=== PATIENT | female | born 1975 | race Caucasian/White ===

== ENCOUNTER 2021-09-20 14:12 | Emergency (ER) | payer MEDICAID ==
[~2021-09-20] VITALS: Ht 170.2 cm; Wt 104.3 kg
[2021-09-20] MEDS ORDERED: CYCLOBENZAPRINE HCL 10 MG TABLET PO ONE (15:00)
[2021-09-20] MEDS ORDERED: MECLIZINE HCL 25 MG TABLET PO ONE (15:00)
[2021-09-20] MEDS ORDERED: ACETAMINOPHEN 500 MG TABLET PO ONE (15:00)
[2021-09-20] MEDS ORDERED: MECL-226 PO (15:42)
[2021-09-20] MEDS ORDERED: CYCL10TA16 PO (15:42)
[2021-09-20] MEDS ORDERED: ONDA4TAB10 PO (15:42)
[2021-09-20] MEDS ORDERED: ACET-2247 PO (15:42)
[2021-09-20 15:56] VITALS: BP 127/65
== END 2021-09-20 16:00 | disposition home or self-care (01) ==
LOC: EDH 14:12
DX: S06.0X0A Concussion without loss of consciousness, initial encounter (principal); S00.03XA Contusion of scalp, initial encounter; Z88.1 Allergy status to other antibiotic agents; Z88.5 Allergy status to narcotic agent; W01.0XXA Fall on same level from slipping, tripping and stumbling without subsequent striking against object, initial encounter; Y93.89 Activity, other specified; Y92.89 Other specified places as the place of occurrence of the external cause; Y99.8 Other external cause status
CPT/HCPCS: 70450